=== PATIENT | male | born 1965 | race American Indian/Alaskan Native ===

== ENCOUNTER 2017-01-13 19:13 | Emergency (ER) | payer SELFPAY ==
[2017-01-13] MEDS ORDERED: TORADOL IV ONE (20:38)
[2017-01-13] MEDS ORDERED: NACL 0.9% 1000 ML 1,000 ML IV ONE (20:38)
--- NOTE | 2017-01-13 20:39 | Emergency Department Report ---
ED Abdominal Pain HPI - General Chief Complaint: Abdominal Pain Stated Complaint: BLOOD IN URINE Time Seen by Provider: 01/13/17 20:31 Source: patient, RN notes reviewed Mode of arrival: Ambulatory Limitations: No Limitations - History of Present Illness Initial Comments: This is a 51-year-old male. He is previously unknown to me. He does not have a primary care doctor. He denies chronic medical conditions. He works in security. He presents to the ER with gross hematuria and left flank pain. This started today. The flank pain is achy. It does not radiate anywhere. It has no exacerbating or relieving factors. There is no testicular pain. The patient indicates he does not have a urinary obstruction. The patient indicates he is sexually active only with his . He reports that he does have some burning when he urinates his urethra. There is no headache or neck pain, no chest pain and shortness of breath, there is no anterior abdominal pain. MD Complaint: flank pain -: Gradual Location: L flank Radiation: none Quality: aching Improves With: nothing Worsens With: nothing Associated Symptoms: denies: nausea, vomiting, diarrhea, fever, chills, constipation, hematemesis, hematochezia, melena, hematuria, anorexia, syncope - Related Data Previous Rx's Medication Instructions Recorded Last Taken Type Ketorolac [Toradol] 10 mg PO Q6H PRN #20 tablet 01/13/17 Unknown Rx Ondansetron [Zofran Odt] 4 mg PO QID PRN #20 tab.rapdis 01/13/17 Unknown Rx Allergies Allergy/AdvReac Type Severity Reaction Status Date / Time No Known Allergies Allergy Verified 01/13/17 19:39 ED Review of Systems ROS: Stated complaint: BLOOD IN URINE Other details as noted in HPI ED Past Medical Hx - Past Medical History Previous Medical History?: No - Surgical History Past Surgical History?: No - Social History Smoking Status: Never Smoker Substance Use Type: None - Medications Home Medications: Home Medications Medication Instructions Recorded Confirmed Last Taken Type Ketorolac [Toradol] 10 mg PO Q6H PRN #20 tablet 01/13/17 Unknown Rx Ondansetron [Zofran Odt] 4 mg PO QID PRN #20 tab.rapdis 01/13/17 Unknown Rx ED Physical Exam - General Limitations: No Limitations General appearance: alert, in no apparent distress - Head Head exam: Present: atraumatic, normocephalic - Eye Eye exam: Present: normal appearance, EOMI. Absent: nystagmus - ENT ENT exam: Present: normal exam, normal orophraynx, mucous membranes moist, normal external ear exam - Neck Neck exam: Present: normal inspection, full ROM. Absent: tenderness, meningismus - Respiratory Respiratory exam: Present: normal lung sounds bilaterally. Absent: respiratory distress, wheezes, rales, rhonchi, stridor, chest wall tenderness, accessory muscle use, decreased breath sounds, prolonged expiratory - Cardiovascular Cardiovascular Exam: Present: regular rate, normal rhythm, normal heart sounds. Absent: bradycardia, tachycardia, irregular rhythm, systolic murmur, diastolic murmur, rubs, gallop - GI/Abdominal GI/Abdominal exam: Present: soft, normal bowel sounds. Absent: distended, tenderness, guarding, rebound, rigid, pulsatile mass - Rectal Rectal exam: Present: deferred - exam: Present: normal inspection, other (there is normal testicular lie. There is no testicular tenderness. There is normal cremasteric reflex bilaterally. Escorted by nurse Phi Geller). Absent: testicular tenderness, scrotal swelling External exam: Present: normal external exam - Extremities Exam Extremities exam: Present: normal inspection, full ROM, normal capillary refill. Absent: pedal edema, joint swelling, calf tenderness - Back Exam Back exam: Present: normal inspection, full ROM. Absent: tenderness, CVA tenderness (R), CVA tenderness (L), muscle spasm, paraspinal tenderness, vertebral tenderness - Neurological Exam Neurological exam: Present: alert, oriented X3, normal gait, other (Extraocular movements intact. Tongue midline. No facial droop. Facial sensation intact to light touch in the V1, V2, V3 distribution bilaterally. 5 and 5 strength in 4 extremities.. Sensation is intact to light touch in 4 extremities.). Absent : motor sensory deficit - Psychiatric Psychiatric exam: Present: normal affect, normal mood - Skin Skin exam: Present: warm, dry, intact, normal color. Absent: rash ED Course Vital Signs 01/13/17 01/13/17 19:51 22:57 Temperature 98.5 F Pulse Rate 78 61 Respiratory 16 16 Rate Blood Pressure 160/96 Blood Pressure 155/81 [Left] O2 Sat by Pulse 100 99 Oximetry - Reevaluation(s) Reevaluation #1: 01/13/17 21:46 Differential diagnosis: Renal colic, urinary tract infection, urinary malignancy Assessment and plan: 51-year-old male with flank pain and gross hematuria. He is afebrile with reassuring vital signs, appears quite comfortable. Has an unremarkable physical examination. He will be treated symptomatically. Laboratory studies, urinalysis, noncontrast CT scan of the abdomen and pelvis pending. Patient does not have any risk factors for urinary malignancy; he does not work with blue or analine dyes, and he has not recently been to the [place] or [place]. There is no family history of urinary malignancy that he is aware of. Reevaluation #2: 01/13/17 23:25 Patient feels improved. Urinalysis appreciated. CT scan demonstrates no stone. Nonspecific cystic lesion is noted. Patient will need to follow up with outpatient neurology to exclude malignancy. Urinalysis does not meet criteria for antibiotic therapy. Dysuria most likely secondary to discomfort from blood coming from the urethral meatus. The patient is instructed as to the importance of close outpatient follow-up with urology. He is specifically instructed and not following up in a timely fashion may result in undiagnosed tumor/cancer/. ED Medical Decision Making - Lab Data Result diagrams: 01/13/17 20:41 01/13/17 20:41 Vital Signs 01/13/17 19:51 Temperature 98.5 F Pulse Rate 78 Respiratory 16 Rate Blood Pressure 160/96 O2 Sat by Pulse 100 Oximetry Labs 01/13/17 01/13/17 20:41 20:41 WBC 12.0 H Hgb 12.5 Sodium 135 L Potassium 4.1 Chloride 98.1 Carbon Dioxide 26 Anion Gap 15 BUN 14 Creatinine 0.9 Estimated GFR > 60 BUN/Creatinine Ratio 15.55 Glucose 157 H Calcium 8.9 Total Creatine Kinase 182 H - Radiology Data Radiology results: report reviewed Noncontrast CT of the abdomen and pelvis demonstrates no acute stone. There is a 1.9 cm cystic lesion on the left kidney which cannot be further evaluated on noncontrast study. Otherwise no acute intra-abdominal disease. Critical care attestation.: If time is entered above; I have spent that time in minutes in the direct care of this critically ill patient, excluding procedure time. ED Disposition Clinical Impression: Hematuria Disposition: DISCHARGED TO HOME OR SELFCARE Is pt being admited?: No Does the pt Need Aspirin: No Condition: Stable Instructions: Acute Hematuria (ED) Additional Instructions: As we discussed, laboratory studies today and CAT scan demonstrated blood in the urine. Noncontrast CT scan of the abdomen and pelvis demonstrated a nonspecific cystic lesion in the left kidney. Follow up with urology specialist as soon as possible. Not following up in a timely fashion may result in an undiagnosed tumor/cancer/malignancy. Cultures was sent today, results will be available the next 3-5 days. Please have a primary care doctor or urology specialist contact the medical records department to obtain culture results. Return to the ER right away with new pain, worsening pain, migration of pain, fevers or chills, intractable nausea or vomiting, inability to tolerate liquid feeds. Dr. Vaughan is a local urology specialist. Referrals: PRIMARY CAREMD [Primary Care Provider] - 3-5 Days NITISH VAUGHAN MD [Staff Physician] - 3-5 Days
[2017-01-13 21:00] LABS: Hemoglobin 12.5 gm/dl (11.8-15.2)
[2017-01-13 21:14] LABS: Anion Gap 15 mmol/L; BUN/Creatinine Ratio 15.55; Blood Urea Nitrogen 14 mg/dL (9-20); Calcium 8.9 mg/dL (8.4-10.2); Carbon Dioxide 26 mmol/L (22-30); Chloride 98.1 mmol/L (98-107); Creatine Kinase 182 units/L (55-170); Glucose 157 mg/dL (75-100); Potassium 4.1 mmol/L (3.6-5.0); Sodium 135 mmol/L (137-145)
[2017-01-13 21:48] LABS: Bilirubin,Urine Negative (Negative); Ketones,Urine Negative (Negative)
[2017-01-13 21:49] LABS: Blood,Urine Large (Negative); Leukocyte Esterase,Urine Moderate (Negative); Nitrite,Urine Negative (Negative); RBC,Urine > 182.0 /HPF (0.0-6.0); Urobilinogen,Urine < 2.0 mg/dL (<2.0)
--- NOTE | 2017-01-13 21:57 | Cat Scan Report ---
FINAL REPORT PROCEDURE: CT ABDOMEN PELVIS WO CON TECHNIQUE: Computerized axial tomography of the abdomen and pelvis was performed without intravenous contrast. This study is performed without intravascular contrast material and its sensitivity for abdominal and pelvic pathology, including neoplasms, inflammation, abscess, free fluid, thrombosis, arterial dissection and infarction, is reduced compared with a contrast enhanced study. HISTORY: left flank pain hematuria COMPARISON: No prior studies are available for comparison. FINDINGS: Liver, spleen, and adrenal glands are within normal limits. Right kidney demonstrates uniform density without calculi or hydronephrosis. Left kidney demonstrates a well-defined cyst measuring 1.9 centimeters in the midpole. There is no hydronephrosis. Aorta is of normal caliber. There is no free fluid or free air. Gallbladder is partially distended. Small bowel loops are within normal limits. Mild degree residual stool is noted. Appendix is normal. IMPRESSION: 1.9 centimeters cystic lesion of left kidney cannot be further evaluated on this noncontrast study. Otherwise no acute intra-abdominal or pelvic pathology.
[2017-01-13 22:07] LABS: Hematocrit 38.4 % (35.5-45.6); Mean Corpuscular HGB Conc 33 % (32-34); Mean Corpuscular Hemoglobin 28 pg (28-32); Mean Corpuscular Volume 84 fl (84-94); Platelet Count 388 K/mm3 (140-440); Red Blood Count 4.58 M/mm3 (3.65-5.03); Red Cell Distribution Width 15.8 % (13.2-15.2)
[2017-01-13 22:57] VITALS: BP 155/81
== END 2017-01-13 23:50 | disposition home or self-care (01) ==
LOC: ED 19:13
DX: R31.9 Hematuria, unspecified (principal)
CPT/HCPCS: 36415; 74176; 80048; 81001; 82550; 85027; 87086; 96361; 96374; 99284; J1885; J7030; 87076; 87186

== ENCOUNTER 2017-01-20 20:43 | Emergency (ER) | payer SELFPAY ==
[2017-01-20 21:04] LABS: Basophils % (Auto) 0.9 % (0.0-1.8); Eosinophils % (Auto) 3.2 % (0.0-4.3); Hematocrit 38.4 % (35.5-45.6); Hemoglobin 12.8 gm/dl (11.8-15.2); Mean Corpuscular HGB Conc 33 % (32-34); Mean Corpuscular Hemoglobin 28 pg (28-32); Mean Corpuscular Volume 83 fl (84-94); Platelet Count 404 K/mm3 (140-440); Red Blood Count 4.61 M/mm3 (3.65-5.03); Red Cell Distribution Width 15.7 % (13.2-15.2); White Blood Count 7.6 K/mm3 (4.5-11.0)
[2017-01-20 21:22] LABS: Alanine Aminotransferase 12 units/L (7-56); Albumin 3.7 g/dL (3.9-5); Albumin/Globulin Ratio 0.8 %; Alkaline Phosphatase 84 units/L (35-129); Anion Gap 16 mmol/L; Blood Urea Nitrogen 14 mg/dL (9-20); Calcium 8.6 mg/dL (8.4-10.2); Carbon Dioxide 25 mmol/L (22-30); Chloride 101.5 mmol/L (98-107); Glucose 94 mg/dL (75-100); Potassium 3.9 mmol/L (3.6-5.0); Sodium 139 mmol/L (137-145); Total Protein 8.5 g/dL (6.3-8.2)
--- NOTE | 2017-01-21 07:34 | Emergency Department Report ---
ED Male HPI - General Chief complaint: Abdominal Pain Stated complaint: LEFT SIDE PAIN, HEMATURIA Time Seen by Provider: 01/21/17 07:00 Source: patient Mode of arrival: Ambulatory Limitations: No Limitations - History of Present Illness Initial comments: Patient is a 51-year-old male with no past medical history or primary care, presenting with left flank pain and hematuria 3-4 days. Patient reports he was seen in the ER 3 days ago had a CT scan done and was discharged. Patient reports he still having mild dysuria, left flank pain, and hematuria with clots. Pt is sexually active with only. No prior episodes of this pain or hematuria. Patient denies any fevers, chills, nausea, vomiting, chest pain, shortness of breath, trauma, h/o STD's, back pain, testicular pain or swelling, travel or sick contacts. - Related Data Previous Rx's Medication Instructions Recorded Last Taken Type Ketorolac [Toradol] 10 mg PO Q6H PRN #20 tablet 01/13/17 Unknown Rx Ondansetron [Zofran Odt] 4 mg PO QID PRN #20 tab.rapdis 01/13/17 Unknown Rx Ciprofloxacin HCl [Ciprofloxacin 500 mg PO BID #20 tablet 01/21/17 Unknown Rx TAB] Allergies Allergy/AdvReac Type Severity Reaction Status Date / Time No Known Allergies Allergy Verified 01/13/17 19:39 ED Review of Systems ROS: Stated complaint: LEFT SIDE PAIN, HEMATURIA Other details as noted in HPI Comment: All other systems reviewed and negative ED Past Medical Hx - Past Medical History Previous Medical History?: No - Surgical History Past Surgical History?: No - Social History Smoking Status: Never Smoker Substance Use Type: None - Medications Home Medications: Home Medications Medication Instructions Recorded Confirmed Last Taken Type Ketorolac [Toradol] 10 mg PO Q6H PRN #20 tablet 01/13/17 Unknown Rx Ondansetron [Zofran Odt] 4 mg PO QID PRN #20 tab.rapdis 01/13/17 Unknown Rx Ciprofloxacin HCl [Ciprofloxacin 500 mg PO BID #20 tablet 01/21/17 Unknown Rx TAB] ED Physical Exam - General Limitations: No Limitations General appearance: alert, in no apparent distress - Head Head exam: Present: atraumatic, normocephalic - Eye Eye exam: Present: normal appearance - ENT ENT exam: Present: mucous membranes moist - Neck Neck exam: Present: normal inspection - Respiratory Respiratory exam: Present: normal lung sounds bilaterally. Absent: respiratory distress - Cardiovascular Cardiovascular Exam: Present: regular rate, normal rhythm. Absent: systolic murmur, diastolic murmur, rubs, gallop - GI/Abdominal GI/Abdominal exam: Present: soft, tenderness (mild L flank tenderness), normal bowel sounds. Absent: distended, guarding, rebound - Rectal Rectal exam: Present: deferred - Extremities Exam Extremities exam: Present: normal inspection - Back Exam Back exam: Present: normal inspection. Absent: CVA tenderness (R), CVA tenderness (L) - Neurological Exam Neurological exam: Present: alert, oriented X3 - Psychiatric Psychiatric exam: Present: normal affect, normal mood - Skin Skin exam: Present: warm, dry, intact, normal color. Absent: rash ED Course Vital Signs 01/20/17 01/21/17 01/21/17 20:50 02:16 06:50 Temperature 98.3 F 98.4 F Pulse Rate 71 66 72 Respiratory 18 18 16 Rate Blood Pressure 142/89 143/99 Blood Pressure 122/87 [Right] O2 Sat by Pulse 100 98 Oximetry 01/21/17 07:15 Temperature Pulse Rate 63 Respiratory 16 Rate Blood Pressure Blood Pressure 139/89 [Right] O2 Sat by Pulse 100 Oximetry ED Medical Decision Making - Lab Data Result diagrams: 01/20/17 20:56 01/21/17 07:39 - Medical Decision Making CT scan reviewed from 3 days prior, patient only has some small cyst of left kidney. ED notes from prior visit reviewed. Your physician to discuss primary care follow-up to rule out malignancy and any other causes of hematuria with primary care. Critical care attestation.: If time is entered above; I have spent that time in minutes in the direct care of this critically ill patient, excluding procedure time. ED Disposition Clinical Impression: Flank pain, UTI (urinary tract infection) Disposition: DISCHARGED TO HOME OR SELFCARE Is pt being admited?: No Condition: Stable Instructions: Urinary Tract Infection in Men (ED), Flank Pain (ED) Prescriptions: Ciprofloxacin HCl [Ciprofloxacin TAB] 500 mg PO BID #20 tablet Referrals: PRIMARY CARE, [Primary Care Provider] - 3-5 Days
[2017-01-21 07:42] LABS: Bilirubin,Urine NEG (Negative); Blood,Urine LG (Negative); Ketones,Urine TR mg/dL (Negative); Leukocyte Esterase,Urine MOD (Negative); Mucus,Urine 2+ /HPF; Nitrite,Urine POS (Negative); Urobilinogen,Urine < 2.0 mg/dL (<2.0)
[2017-01-21 07:44] LABS: RBC,Urine > 182.0 /HPF (0.0-6.0); WBC,Urine > 182.0 /HPF (0.0-6.0)
[2017-01-21 08:09] LABS: Anion Gap 17 mmol/L; BUN/Creatinine Ratio 15.55; Blood Urea Nitrogen 14 mg/dL (9-20); Calcium 8.9 mg/dL (8.4-10.2); Carbon Dioxide 24 mmol/L (22-30); Chloride 102.8 mmol/L (98-107); Glucose 141 mg/dL (75-100); Potassium 3.9 mmol/L (3.6-5.0); Sodium 140 mmol/L (137-145)
[2017-01-21 09:26] VITALS: BP 146/92
== END 2017-01-21 09:26 | disposition home or self-care (01) ==
LOC: ED 20:43
DX: N39.0 Urinary tract infection, site not specified (principal)
CPT/HCPCS: 36415; 80048; 80053; 81001; 85025; 99283

== ENCOUNTER 2021-12-13 08:36 | Emergency (ER) | payer SELFPAY ==
[2021-12-13] MEDS ORDERED: SODIUM CHLORIDE 0.9% 1000 ML 1,000 ML IV ONE (09:27)
[2021-12-13] MEDS ORDERED: metFORMIN 500 MG TAB PO ONE (09:27)
--- NOTE | 2021-12-13 09:29 | Emergency Department Report ---
HPI - General Chief Complaint: Hyperglycemia Time Seen by Provider: 12/13/21 09:18 - HPI HPI: For the last week the patient has been experiencing moderate polydipsia and polyuria. He denies weight loss nausea vomiting fever chills chest pain focal weakness headache or any other associated symptoms. He has never been told that he has diabetes. He has not checked his sugar. He has not taken any medications for this and nothing makes it better nor worse. ED Past Medical Hx - Past Medical History Previous Medical History?: No - Surgical History Past Surgical History?: No - Family History Family history: no significant - Social History Smoking Status: Never Smoker Substance Use Type: None - Medications Home Medications: Home Medications Medication Instructions Recorded Confirmed Last Taken Type Ketorolac [Toradol] 10 mg PO Q6H PRN #20 tablet 01/13/17 Unknown Rx Ondansetron [Zofran Odt] 4 mg PO QID PRN #20 tab.rapdis 01/13/17 Unknown Rx Ciprofloxacin HCl [Ciprofloxacin 500 mg PO BID #20 tablet 01/21/17 Unknown Rx TAB] metFORMIN [Glucophage] 500 mg PO BID #90 12/13/21 Unknown Rx ED Review of Systems ROS: Stated complaint: THRISTY/NOT FEELING WELL Other details as noted in HPI Comment: All other systems reviewed and negative Physical Exam - Physical Exam Vital Signs: Vital Signs 12/13/21 08:47 Temperature 98.5 F Pulse Rate 85 Respiratory 18 Rate Blood Pressure 135/86 O2 Sat by Pulse 100 Oximetry Physical Exam: Physical Exam Constitutional: General: No acute distress. Appearance: No diaphoresis. HENT: Head: Normocephalic. Eyes: Pupils: Pupils are equal, round, and reactive to light. Neck: Musculoskeletal: Normal range of motion. Cardiovascular: Rate and Rhythm: Normal rate and regular rhythm. Pulses: Intact distal pulses. Heart sounds: Normal heart sounds. No murmur. Pulmonary: Effort: No respiratory distress. Breath sounds: No wheezing or rales. Chest: Chest wall: No tenderness. Abdominal: General: There is no distension. Palpations: There is no mass. Tenderness: There is no abdominal tenderness. There is no guarding or rebound. Musculoskeletal: Normal range of motion. Skin: General: Skin is warm and dry. Neurological: Mental Status: Alert and oriented to person, place, and time. Psychiatric: Mood and Affect: Mood and affect normal. Cognition and Memory: Memory normal. Judgment: Judgment normal. ED Course Vital Signs 12/13/21 08:47 Temperature 98.5 F Pulse Rate 85 Respiratory 18 Rate Blood Pressure 135/86 O2 Sat by Pulse 100 Oximetry - Reevaluation(s) Reevaluation #1: 12/13/21 11:07 The patient's blood sugar was in the 300s. I gave him a touch of insulin with 8 units intravenous. I will put him on 500 twice daily of Metformin. He knows to increase his dose in a week to 1000 in the morning and 500 at night. In the meantime he will follow up with a doctor we have assigned him. I gave him prescriptions for all the equipment he needs to monitor his blood glucose. He will return if any other issues arise. ED Medical Decision Making - Lab Data Result diagrams: 12/13/21 09:44 12/13/21 09:44 Critical care attestation.: If time is entered above; I have spent that time in minutes in the direct care of this critically ill patient, excluding procedure time. ED Disposition Clinical Impression: Diabetes, Hyperglycemia Disposition: 01 HOME / SELF CARE / HOMELESS Is pt being admited?: No Does the pt Need Aspirin: No Condition: Stable Instructions: Type 2 Diabetes Mellitus, Diagnosis, Adult, Diabetes Mellitus Type 2 in Adults (ED) Prescriptions: metFORMIN [Glucophage] 500 mg PO BID #90 Time of Disposition: 11:20 Print Language: [place]
[2021-12-13 10:13] LABS: Basophils # (Auto) 0.1 K/mm3 (0.0-0.1); Basophils % (Auto) 0.9 % (0.0-1.8); Eosinophils # (Auto) 0.2 K/mm3 (0.0-0.4); Eosinophils % (Auto) 3.5 % (0.0-4.3); Hemoglobin 13.5 gm/dl (11.8-15.2); Lymphocytes # (Auto) 1.4 K/mm3 (1.2-5.4); Lymphocytes % (Auto) 22.1 % (13.4-35.0); Mean Corpuscular HGB Conc 34 % (32-34); Mean Corpuscular Volume 82 fl (84-94); Monocytes # (Auto) 0.4 K/mm3 (0.0-0.8); Monocytes % (Auto) 5.8 % (0.0-7.3); Platelet Count 393 K/mm3 (140-440); Red Blood Count 4.86 M/mm3 (3.65-5.03); Red Cell Distribution Width 15.5 % (13.2-15.2)
[2021-12-13 10:31] LABS: Alanine Aminotransferase 22 units/L (7-56); Albumin 3.6 g/dL (3.9-5); BUN/Creatinine Ratio 10; Blood Urea Nitrogen 10 mg/dL (9-20); Calcium 9.3 mg/dL (8.4-10.2); Hemolysis Index 3
[2021-12-13] MEDS ORDERED: INSULIN REGULAR, HUMAN 100 UNITS/1 ML IV ONE (11:03)
[2021-12-13 11:46] VITALS: BP 138/90
== END 2021-12-13 11:53 | disposition home or self-care (01) ==
LOC: ED 08:36
DX: E11.65 Type 2 diabetes mellitus with hyperglycemia (principal)
CPT/HCPCS: 36415; 80053; 82962; 85025; 96361; 96374; 99284; J7030; Q0162; Q9967; J1815

== ENCOUNTER 2021-12-21 01:58 | Inpatient (IN) | payer SELFPAY ==
[2021-12-21 05:43] LABS: Albumin 4.2 g/dL (3.9-5); Calcium 9.8 mg/dL (8.4-10.2)
[2021-12-21 05:49] LABS: Hematocrit 42.6 % (35.5-45.6); Mean Corpuscular HGB Conc 33 % (32-34); Mean Corpuscular Volume 84 fl (84-94); Platelet Count 446 K/mm3 (140-440); Red Blood Count 5.05 M/mm3 (3.65-5.03); Red Cell Distribution Width 15.7 % (13.2-15.2)
[2021-12-21 06:34] LABS: Bilirubin,Urine NEG (Negative); Blood,Urine NEG (Negative); Color,Urine Yellow (Yellow); Mucus,Urine FEW /HPF; Protein,Urine <15 mg/dL mg/dL (Negative); Urobilinogen,Urine < 2.0 mg/dL (<2.0)
[2021-12-21] MEDS ORDERED: SODIUM CHLORIDE 0.9% 1000 ML 1,000 ML IV ONE ×4 (07:09→10:00)
--- NOTE | 2021-12-21 07:32 | Emergency Department Report ---
HPI - General Chief Complaint: Hyperglycemia Time Seen by Provider: 12/21/21 07:08 - HPI HPI: Room 25 Patient is a 56-year-old male present with a chief complaint of weakness. The patient states for the past week he has had dry lips, polyuria, polydipsia diffuse weakness and periumbilical abdominal pain. Patient denies nausea vomiting or fever. Patient states he has been compliant with his metformin and takes no other medications for his diabetes ED Past Medical Hx - Past Medical History Hx Diabetes: Yes - Surgical History Past Surgical History?: No - Family History Family history: no significant - Social History Smoking Status: Never Smoker Substance Use Type: None (Denies illicit drug use) - Medications Home Medications: Home Medications Medication Instructions Recorded Confirmed Last Taken Type Ketorolac [Toradol] 10 mg PO Q6H PRN #20 tablet 01/13/17 Unknown Rx Ondansetron [Zofran Odt] 4 mg PO QID PRN #20 tab.rapdis 01/13/17 Unknown Rx Ciprofloxacin HCl [Ciprofloxacin 500 mg PO BID #20 tablet 01/21/17 Unknown Rx TAB] metFORMIN [Glucophage] 500 mg PO BID #90 12/13/21 Unknown Rx ED Review of Systems ROS: Stated complaint: GENERAL WEAKNESS Other details as noted in HPI Constitutional: denies: fever Eyes: denies: eye pain ENT: denies: throat pain Respiratory: no symptoms reported Cardiovascular: denies: chest pain Endocrine: increased thirst, increased urine Gastrointestinal: abdominal pain. denies: nausea, vomiting Genitourinary: denies: dysuria Musculoskeletal: denies: back pain Neurological: denies: headache Physical Exam - Physical Exam Vital Signs: Vital Signs 12/21/21 02:16 Temperature 98.7 F Pulse Rate 99 H Respiratory 18 Rate Blood Pressure 134/79 O2 Sat by Pulse 99 Oximetry Physical Exam: GENERAL: The patient is well-developed well-nourished male lying on stretcher not appearing to be in acute distress. [] HEENT: Normocephalic. Atraumatic. Extraocular motions are intact. Patient has dry mucous membranes. NECK: Supple. Trachea midline CHEST/LUNGS: Clear to auscultation. There is no respiratory distress noted. HEART/CARDIOVASCULAR: Regular. There is no tachycardia. There is no gallop rub or murmur. ABDOMEN: Abdomen is soft, nontender. Patient has normal bowel sounds. There is no abdominal distention. SKIN: There is no rash. There is no edema. There is no diaphoresis. NEURO: The patient is awake, alert, and oriented. The patient is cooperative. The patient has no focal neurologic deficits. The patient has normal speech. GCS 15 MUSCULOSKELETAL: There is no evidence of acute injury. ED Course Vital Signs 12/21/21 02:16 Temperature 98.7 F Pulse Rate 99 H Respiratory 18 Rate Blood Pressure 134/79 O2 Sat by Pulse 99 Oximetry ED Medical Decision Making - Lab Data Result diagrams: 12/21/21 04:30 12/21/21 04:30 Laboratory Tests 12/21/21 12/21/21 12/21/21 04:30 04:30 04:30 WBC 9.9 RBC 5.05 H Hgb 14.0 Hct 42.6 MCV 84 MCH 28 MCHC 33 RDW 15.7 H Plt Count 446 H VBG pH 7.318 L Sodium 134 L Potassium 5.3 H Chloride 92.8 L Carbon Dioxide 18 L Anion Gap 29 BUN 25 H Creatinine 1.6 H Estimated GFR 55 BUN/Creatinine Ratio 16 Glucose 621 H* Calcium 9.8 Total Bilirubin 0.50 AST 16 ALT 24 Alkaline Phosphatase 111 Total Protein 9.4 H Albumin 4.2 Albumin/Globulin Ratio 0.8 Urine Color Urine Turbidity Urine pH Ur Specific [place] Urine Protein Urine Glucose (UA) Urine Ketones Urine Blood Urine Nitrite Urine Bilirubin Urine Urobilinogen Ur Leukocyte Esterase Urine WBC (Auto) Urine RBC (Auto) U Epithel Cells (Auto) Urine Mucus 12/21/21 06:04 WBC RBC Hgb Hct MCV MCH MCHC RDW Plt Count VBG pH Sodium Potassium Chloride Carbon Dioxide Anion Gap BUN Creatinine Estimated GFR BUN/Creatinine Ratio Glucose Calcium Total Bilirubin AST ALT Alkaline Phosphatase Total Protein Albumin Albumin/Globulin Ratio Urine Color Yellow Urine Turbidity Clear Urine pH 5.0 Ur Specific [place] 1.025 Urine Protein <15 mg/dl Urine Glucose (UA) >=500 Urine Ketones 20 Urine Blood Neg Urine Nitrite Neg Urine Bilirubin Neg Urine Urobilinogen < 2.0 Ur Leukocyte Esterase Mod Urine WBC (Auto) 39.0 H Urine RBC (Auto) 9.0 U Epithel Cells (Auto) 2.0 Urine Mucus Few - Differential Diagnosis DKA, hyperglycemia, dehydration Critical care attestation.: If time is entered above; I have spent that time in minutes in the direct care of this critically ill patient, excluding procedure time. ED Disposition Clinical Impression: DKA (diabetic ketoacidosis) Disposition: 09 ADMITTED INPATIENT Is pt being admited?: Yes Does the pt Need Aspirin: No Condition: Fair Instructions: Diabetic Ketoacidosis (ED) Referrals: PRIMARY CARE,MD [Primary Care Provider] - 3-5 Days Time of Disposition: 07:33 (Care transferred to hospitalist (Dr Green))
[2021-12-21] MEDS ORDERED: ACETAMINOPHEN 325 MG TAB PO PRN (08:00)
[2021-12-21] MEDS ORDERED: MORPHINE 4 MG/1 ML INJ IV PRN (08:00)
[2021-12-21] MEDS ORDERED: DEXTROSE 50% IN WATER (25GM) 50 ML SYRINGE IV PRN (08:00)
[2021-12-21] MEDS ORDERED: MORPHINE 2 MG/1 ML INJ IV PRN (08:00)
[2021-12-21] MEDS: INSULIN REGULAR, HUMAN 100 UNITS in SODIUM CHLORIDE 0.9% 99 ML IV SCH ×5 (08:32→23:29)
[2021-12-21 08:37] LABS: Calcium 9.7 mg/dL (8.4-10.2)
--- NOTE | 2021-12-21 08:49 | History and Physical Report ---
History of Present Illness Date of examination: 12/21/21 Chief complaint: Weakness, dry lips, increased urination, increased thirst, periumbilical abdominal pain History of present illness: This is a 56-year-old male with DM (per patient diagnosed last week and was prescribed metformin 500 twice daily with stated compliance) who presents the emergency department on 12/21 with complaints of weakness, dry lips, polyuria, polydipsia, SOB while walking and periumbilical abdominal pain for the past week. Patient denies any chest pain, weight loss, weight gain, cough, hematuria, hematochezia, hematemesis, night sweats but does endorse weakness and shortness of breath on exertion. Patient states that he has been vaccinated x2 and received a booster Stion vaccine against COVID-19. He denies any sick contacts or recent known exposures to COVID-19. Work-up in the emergency department lab work was consistent with DKA. Patient will be admitted to the hospitalist service with consult to [facility] with diagnosis of DKA and initiated the DKA protocol. Past medical history: DM (metformin 500 mg twice daily) Past surgical history: Denies any surgical interventions Past social history: Denies smoking, EtOH abuse, illicit drug abuse Past family history: Patient states that his daughter has diabetes mellitus Past History Past Medical History: diabetes. denies: atrial fib, arrhythmia, anemia, COPD, ESRD, GERD, hypertension, renal failure, seizures, stroke Past Surgical History: No surgical history Social history: no significant social history, , lives with family, full code Family history: diabetes Medications and Allergies Allergies Allergy/AdvReac Type Severity Reaction Status Date / Time No Known Allergies Allergy Verified 01/13/17 19:39 Home Medications Medication Instructions Recorded Confirmed Last Taken Type Ketorolac [Toradol] 10 mg PO Q6H PRN #20 tablet 01/13/17 Unknown Rx Ondansetron [Zofran Odt] 4 mg PO QID PRN #20 tab.rapdis 01/13/17 Unknown Rx Ciprofloxacin HCl [Ciprofloxacin 500 mg PO BID #20 tablet 01/21/17 Unknown Rx TAB] metFORMIN [Glucophage] 500 mg PO BID #90 12/13/21 Unknown Rx Active Meds: Active Medications Acetaminophen (Acetaminophen 325 Mg Tab) 650 mg PO Q6H PRN PRN Reason: Pain MILD(1-3)/Fever >100.5/CARMONA Dextrose (Dextrose 50% In Water (25gm) 50 Ml Syringe) 0 ml IV Q30MIN PRN; Protocol PRN Reason: Hypoglycemia Heparin Sodium (Porcine) (Heparin 5,000 Unit/1 Ml Vial) 5,000 unit SUB-Q Q8HR DM Insulin Human Regular 100 (units/ Sodium Chloride) 100 mls @ 10 mls/hr IV TITR DM; Protocol Last Admin: 12/21/21 08:32 Dose: 8 units/hr, 8 mls/hr Sodium Chloride (Nacl 0.9% 1000 Ml) 1,000 mls @ 999 mls/hr IV BOLUS ONE Stop: 12/21/21 09:00 Potassium Chloride/Dextrose/Sod Cl (D5w/0.45% Nacl/Kcl 20 Meq) 20 meq in 1,000 mls @ 125 mls/hr IV DIRECT DM Morphine Sulfate (Morphine 2 Mg/1 Ml Inj) 2 mg IV Q4H PRN PRN Reason: Pain, Moderate (4-6) Morphine Sulfate (Morphine 4 Mg/1 Ml Inj) 4 mg IV Q4H PRN PRN Reason: Pain , Severe (7-10) Sodium Chloride (Sodium Chloride 0.9% 10 Ml Flush Syringe) 10 ml IV BID DM Sodium Chloride (Sodium Chloride 0.9% 10 Ml Flush Syringe) 10 ml IV PRN PRN PRN Reason: LINE FLUSH Review of Systems Constitutional: weakness, no weight loss, no weight gain, no fever, no chills, no sweats, no night sweats, no anorexia, no fatigue Ears, nose, mouth and throat: headache, no ear pain, no ear discharge, no tinnitis, no decreased hearing, no nose pain, no nasal congestion, no nasal discharge, no sinus pressure, no sinus pain, no epistaxis, no dysphagia, no sore throat, no post-nasal drip Cardiovascular: shortness of breath, no chest pain, no orthopnea, no palpitations Respiratory: shortness of breath, no cough, no cough with sputum, no excessive sputum, no hemoptysis, no dyspnea on exertion, no congestion, no wheezing, no pl eurisy, no pain on inspiration, no sleep apnea Gastrointestinal: abdominal pain, no nausea, no vomiting, no diarrhea, no constipation, no hematemesis, no coffee ground emesis, no melena, no hematochezia Genitourinary Male: polyuria, no dysuria, no hematuria, no flank pain, no discharge, no urinary hesitancy, no nocturia, no incontinence, no erectile dysfunction, no genital pain, no genital sores Rectal: no pain, no incontinence, no bleeding, no hemorrhoids Musculoskeletal: no neck stiffness, no neck pain, no shooting arm pain, no arm numbness/tingling, no low back pain, no shooting leg pain, no leg numbness/tingling, no frequent falls Integumentary: dryness, no rash, no pruritis, no redness, no sores, no wounds, no depigmentation, no foot/leg ulcers Neurological: weakness, headaches, no head injury, no transient paralysis, no paralysis, no parathesias, no numbness, no tingling, no seizures, no syncope, no migraines, no change in speech, no change in mentation, no changes in smell/taste, no sensory deficit, no double vision, no loss of vision Psychiatric: no anxiety, no memory loss, no change in sleep habits, no sleep disturbances, no change in appetite, no change in libido Endocrine: polydipsia, polyuria, no cold intolerance, no heat intolerance, no nocturia, no weight change, no palpatations, no high blood sugars Hematologic/Lymphatic: no easy bruising, no easy bleeding, no lymphedema Allergic/Immunologic: no allergic rhinitis, no seasonal allergies Exam - Constitutional Vitals: Temp Pulse Resp BP Pulse Ox 98.2 F 88 19 106/70 99 12/21/21 08:01 12/21/21 07:46 12/21/21 07:46 12/21/21 07:46 12/21/21 08:01 General appearance: Present: no acute distress, obese - EENT Eyes: Present: PERRL, EOM intact ENT: hearing intact, clear oral mucosa, dentition normal - Neck Neck: Present: normal ROM - Respiratory Respiratory effort: normal Respiratory: bilateral: CTA - Cardiovascular Rhythm: regular Heart Sounds: Present: S1 & S2. Absent: systolic murmur, diastolic murmur - Extremities Extremities: no ischemia, pulses intact, pulses symmetrical, No edema, normal temperature, normal color, Full ROM Peripheral Pulses: within normal limits - Abdominal General gastrointestinal: Present: soft, non-tender, non-distended, normal bowel sounds - Integumentary Integumentary: Present: clear, warm, dry - Musculoskeletal Musculoskeletal: strength equal bilaterally - Psychiatric Psychiatric: appropriate mood/affect, cooperative - Neurologic Neurologic: CNII-XII intact, no focal deficits, moves all extremities - Allied Health Allied health notes reviewed: nursing HEART Score - HEART Score History: Slightly suspicious EKG: Normal Age: 45-65 Risk factors: 1-2 risk factors Troponin: WBC 9.9 K/mm3 (4.5-11.0) 12/21/21 04:30 RBC 5.05 M/mm3 (3.65-5.03) H 12/21/21 04:30 Hgb 14.0 gm/dl (11.8-15.2) 12/21/21 04:30 Hct 42.6 % (35.5-45.6) 12/21/21 04:30 MCV 84 fl (84-94) 12/21/21 04:30 MCH 28 pg (28-32) 12/21/21 04:30 MCHC 33 % (32-34) 12/21/21 04:30 RDW 15.7 % (13.2-15.2) H 12/21/21 04:30 Plt Count 446 K/mm3 (140-440) H 12/21/21 04:30 VBG pH 7.318 (7.320-7.420) L 12/21/21 04:30 Sodium 135 mmol/L (137-145) L 12/21/21 Unknown Potassium 5.6 mmol/L (3.6-5.0) H 12/21/21 Unknown Chloride 92.6 mmol/L (98-107) L 12/21/21 Unknown Carbon Dioxide 20 mmol/L (22-30) L 12/21/21 Unknown Anion Gap 28 mmol/L 12/21/21 Unknown BUN 27 mg/dL (9-20) H 12/21/21 Unknown Creatinine 1.6 mg/dL (0.8-1.3) H 12/21/21 Unknown Estimated GFR 55 ml/min 12/21/21 Unknown BUN/Creatinine Ratio 17 % 12/21/21 Unknown Glucose 621 mg/dL (75-100) H* 12/21/21 04:30 POC Glucose 544 mg/dL (70-105) H 12/21/21 02:16 Hemoglobin A1c 13.0 % (4-6) H 12/21/21 04:30 Calcium 9.7 mg/dL (8.4-10.2) 12/21/21 Unknown Phosphorus 5.40 mg/dL (2.5-4.5) H 12/21/21 04:30 Magnesium 2.20 mg/dL (1.7-2.3) 12/21/21 04:30 Total Bilirubin 0.50 mg/dL (0.1-1.2) 12/21/21 04:30 AST 16 units/L (5-40) 12/21/21 04:30 ALT 24 units/L (7-56) 12/21/21 04:30 Alkaline Phosphatase 111 units/L (35-129) 12/21/21 04:30 Total Protein 9.4 g/dL (6.3-8.2) H 12/21/21 04:30 Albumin 4.2 g/dL (3.9-5) 12/21/21 04:30 Albumin/Globulin Ratio 0.8 % 12/21/21 04:30 Urine Color Yellow (Yellow) 12/21/21 06:04 Urine Turbidity Clear (Clear) 12/21/21 06:04 Urine pH 5.0 (5.0-7.0) 12/21/21 06:04 Ur Specific [place] 1.025 (1.003-1.030) 12/21/21 06:04 Urine Protein <15 mg/dl mg/dL (Negative) 12/21/21 06:04 Urine Glucose (UA) >=500 mg/dL (Negative) 12/21/21 06:04 Urine Ketones 20 mg/dL (Negative) 12/21/21 06:04 Urine Blood Neg (Negative) 12/21/21 06:04 Urine Nitrite Neg (Negative) 12/21/21 06:04 Urine Bilirubin Neg (Negative) 12/21/21 06:04 Urine Urobilinogen < 2.0 mg/dL (<2.0) 12/21/21 06:04 Ur Leukocyte Esterase Mod (Negative) 12/21/21 06:04 Urine WBC (Auto) 39.0 /HPF (0.0-6.0) H 12/21/21 06:04 Urine RBC (Auto) 9.0 /HPF (0.0-6.0) 12/21/21 06:04 U Epithel Cells (Auto) 2.0 /HPF (0-13.0) 12/21/21 06:04 Urine Mucus Few /HPF 12/21/21 06:04 Troponin: < normal limit HEART Score: 2 Results - Labs CBC & Chem 7: 12/21/21 04:30 12/21/21 Unknown Labs: Laboratory Last Values WBC 9.9 K/mm3 (4.5-11.0) 12/21/21 04:30 RBC 5.05 M/mm3 (3.65-5.03) H 12/21/21 04:30 Hgb 14.0 gm/dl (11.8-15.2) 12/21/21 04:30 Hct 42.6 % (35.5-45.6) 12/21/21 04:30 MCV 84 fl (84-94) 12/21/21 04:30 MCH 28 pg (28-32) 12/21/21 04:30 MCHC 33 % (32-34) 12/21/21 04:30 RDW 15.7 % (13.2-15.2) H 12/21/21 04:30 Plt Count 446 K/mm3 (140-440) H 12/21/21 04:30 VBG pH 7.318 (7.320-7.420) L 12/21/21 04:30 Sodium 135 mmol/L (137-145) L 12/21/21 Unknown Potassium 5.6 mmol/L (3.6-5.0) H 12/21/21 Unknown Chloride 92.6 mmol/L (98-107) L 12/21/21 Unknown Carbon Dioxide 20 mmol/L (22-30) L 12/21/21 Unknown Anion Gap 28 mmol/L 12/21/21 Unknown BUN 27 mg/dL (9-20) H 12/21/21 Unknown Creatinine 1.6 mg/dL (0.8-1.3) H 12/21/21 Unknown Estimated GFR 55 ml/min 12/21/21 Unknown BUN/Creatinine Ratio 17 % 12/21/21 Unknown Glucose 621 mg/dL (75-100) H* 12/21/21 04:30 POC Glucose 551 mg/dL (70-105) H 12/21/21 07:28 Hemoglobin A1c 13.0 % (4-6) H 12/21/21 04:30 Calcium 9.7 mg/dL (8.4-10.2) 12/21/21 Unknown Phosphorus 5.40 mg/dL (2.5-4.5) H 12/21/21 04:30 Magnesium 2.20 mg/dL (1.7-2.3) 12/21/21 04:30 Total Bilirubin 0.50 mg/dL (0.1-1.2) 12/21/21 04:30 AST 16 units/L (5-40) 12/21/21 04:30 ALT 24 units/L (7-56) 12/21/21 04:30 Alkaline Phosphatase 111 units/L (35-129) 12/21/21 04:30 Total Protein 9.4 g/dL (6.3-8.2) H 12/21/21 04:30 Albumin 4.2 g/dL (3.9-5) 12/21/21 04:30 Albumin/Globulin Ratio 0.8 % 12/21/21 04:30 Urine Color Yellow (Yellow) 12/21/21 06:04 Urine Turbidity Clear (Clear) 12/21/21 06:04 Urine pH 5.0 (5.0-7.0) 12/21/21 06:04 Ur Specific [place] 1.025 (1.003-1.030) 12/21/21 06:04 Urine Protein <15 mg/dl mg/dL (Negative) 12/21/21 06:04 Urine Glucose (UA) >=500 mg/dL (Negative) 12/21/21 06:04 Urine Ketones 20 mg/dL (Negative) 12/21/21 06:04 Urine Blood Neg (Negative) 12/21/21 06:04 Urine Nitrite Neg (Negative) 12/21/21 06:04 Urine Bilirubin Neg (Negative) 12/21/21 06:04 Urine Urobilinogen < 2.0 mg/dL (<2.0) 12/21/21 06:04 Ur Leukocyte Esterase Mod (Negative) 12/21/21 06:04 Urine WBC (Auto) 39.0 /HPF (0.0-6.0) H 12/21/21 06:04 Urine RBC (Auto) 9.0 /HPF (0.0-6.0) 12/21/21 06:04 U Epithel Cells (Auto) 2.0 /HPF (0-13.0) 12/21/21 06:04 Urine Mucus Few /HPF 12/21/21 06:04 - Imaging and Cardiology Chest x-ray: pending Assessment and Plan Assessment and plan: A/P: This is a this is a 56-year-old male with diabetes mellitus admitted with DKA Neuro: NAD -Avoid delirium -Reorientation as needed -Maintain sleep-wake cycle -As needed analgesia Cardiac: NAD -Blood pressure monitoring per protocol Respiratory: NAD, c/o SOB on exertion -Denies cough, inspiratory pain, CTA on auscultation -Obtain CXR -Currently on room air -Pulmonary hygiene -SPO2 monitoring GI: Protein calorie malnutrition, obesity -PPI -N.p.o. -BR when appropriate -Encourage dietary and lifestyle modifications : Pseudohyponatremia, hypochloremia, hyperkalemia, anion gap metabolic acidosis, acute kidney injury, hyperphosphatemia -Correct sodium 147 -JAMES possibly secondary to vasomotor nephropathy -Will attempt to correct with IVF -Strict intake and output -Renally dose medications -Avoid nephrotoxic medications -Daily weights -Obtain urine lites ID: [id number] -Monitor WBC and temperature curve Endo: DKA, h/o DM -Initiate DKA protocol -Hemoglobin A1c 13 -Insulin drip -Accu-Cheks per protocol -IVF per protocol -S/p 2 liters NS in the ED -Repeat 2 L IVF -Avoid hypoglycemia -CC diet when appropriate Heme: NAD -Trend CBC -Transfuse hemoglobin less than 7 -Monitor for signs of bleeding -Heparin subcu -SCDs to BLE while in bed MS: Weakness -Per patient patient had a fall episode last week, Per at bedside he sat down from standing position/slumped over -No weakness noted on exam -May be secondary to volume deficit from DKA -May need PT/OT consult Dispo: ICU Advance care planning: Full CODE STATUS The high probability of a clinically significant, sudden or life threatening deterioration of the [endo] system(s) required my full and direct attention, intervention and personal management. The aggregate critical care time was [90] minutes. This time is in addition to time spent performing reported procedures but includes the following: [x] Data Review and interpretation [x] Patient assessment and monitoring of vital signs [x] Documentation [x] Medication orders and management Advance Directives: No VTE prophylaxis?: Chemical, Mechanical Plan of care discussed with patient/family: Yes
--- NOTE | 2021-12-21 09:21 | XRay Report ---
CHEST 1 VIEW INDICATION: sob. COMPARISON: None FINDINGS: Support devices: None. Heart: Within normal limits. Lungs/Pleura: No acute air space or interstitial disease. The left hemidiaphragm is mildly elevated o r eventrated. No pleural abnormality or pneumothorax. Additional findings: None. IMPRESSION: No acute findings. Mild elevation or eventration of the left hemidiaphragm. Signer Name: Danny Rodrigues Jr, MD Signed: 12/21/2021 9:16 AM Workstation Name: [id number]
[2021-12-21] MEDS ORDERED: SODIUM POLYSTYRENE 15 GM/60 ML ORAL LIQD PO ONE (11:22)
[2021-12-21 13:01] LABS: BUN/Creatinine Ratio 20; Blood Urea Nitrogen 24 mg/dL (9-20); Calcium 8.8 mg/dL (8.4-10.2); Hemolysis Index 41
[2021-12-21] MEDS: D5W/0.45% NACL/KCL 20 MEQ 20 MEQ/1,000 ML BAG IV SCH (15:25)
[2021-12-21] MEDS: HEPARIN 5,000 UNIT/1 ML VIAL SUB-Q SCH (15:33)
[2021-12-21] MEDS ORDERED: SODIUM CHLORIDE 0.9% 100 ML IVPB IV SCH (17:00)
[2021-12-21 18:42] LABS: Creatinine,Urine 258.3 mg/dL (0.1-20.0)
[2021-12-21 23:43] LABS: BUN/Creatinine Ratio 20; Blood Urea Nitrogen 20 mg/dL (9-20); Calcium 8.5 mg/dL (8.4-10.2); Hemolysis Index 31
[2021-12-22] MEDS: HEPARIN 5,000 UNIT/1 ML VIAL SUB-Q SCH ×2 (01:33→06:12)
[2021-12-22 04:57] LABS: Basophils % (Auto) 0.5 % (0.0-1.8); Eosinophils # (Auto) 0.2 K/mm3 (0.0-0.4); Eosinophils % (Auto) 1.8 % (0.0-4.3); Hematocrit 44.2 % (35.5-45.6); Hemoglobin 14.2 gm/dl (11.8-15.2); Lymphocytes # (Auto) 1.8 K/mm3 (1.2-5.4); Lymphocytes % (Auto) 21.1 % (13.4-35.0); Mean Corpuscular HGB Conc 32 % (32-34); Mean Corpuscular Volume 85 fl (84-94); Monocytes # (Auto) 0.6 K/mm3 (0.0-0.8); Monocytes % (Auto) 7.2 % (0.0-7.3); Platelet Count 342 K/mm3 (140-440); Red Cell Distribution Width 16.2 % (13.2-15.2)
[2021-12-22 05:05] LABS: BUN/Creatinine Ratio 17; Blood Urea Nitrogen 17 mg/dL (9-20); Calcium 9.1 mg/dL (8.4-10.2); Hemolysis Index 16
[2021-12-22 07:41] LABS: BUN/Creatinine Ratio 18; Blood Urea Nitrogen 16 mg/dL (9-20); Calcium 9.1 mg/dL (8.4-10.2); Hemolysis Index 144
[2021-12-22] MEDS: D5W/0.45% NACL/KCL 20 MEQ 20 MEQ/1,000 ML BAG IV SCH (08:11)
[2021-12-22] MEDS: INSULIN NPH, HUMAN 100 UNIT/1 ML SUB-Q SCH ×2 (11:28→17:28)
--- NOTE | 2021-12-22 11:40 | Event Note ---
Date: 12/22/21 56 y/o male admitted with DKA, now with new diagnosis of diabetes, anion gap is closed. Start long acting insulin Feed patient Diabetic education If able to tolerate food, transfer to floor WIll sign off once out of unit.
[2021-12-22] MEDS ORDERED: PHENOL 1.4% 177 ML BOTTLE MM PRN (14:31)
[2021-12-22] MEDS: INSULIN LISPRO 100 UNIT/ML SUB-Q SCH (16:49)
[2021-12-22] MEDS: INSULIN REGULAR, HUMAN 100 UNITS/1 ML SUB-Q SCH ×2 (16:51→22:14)
--- NOTE | 2021-12-22 17:37 | Progress Note ---
Assessment and Plan Assessment and plan: A/P: This is a this is a 56-year-old male with diabetes mellitus admitted with DKA Neuro: NAD -Avoid delirium -Reorientation as needed -Maintain sleep-wake cycle -As needed analgesia Cardiac: NAD -Blood pressure monitoring per protocol Respiratory: NAD, c/o SOB on exertion -CXR with no acute findings -Currently on room air -Pulmonary hygiene -SPO2 monitoring GI: Protein calorie malnutrition, obesity -PPI -CC diet -BR : colace -Encourage dietary and lifestyle modifications : Hyperchloremic metabolic acidosis, acute kidney injury secondary to vasomotor nephropathy (resolved) -Strict intake and output -Renally dose medications -Avoid nephrotoxic medications -Daily weights -FeNa 0.25 indicating prerenal state ID: NAD -Monitor WBC and temperature curve Endo: S/p DKA, h/o DM -Hemoglobin A1c 13 -S/p insulin drip -Accu-Cheks AC at bedtime -SSI -Long-acting insulin -S/p 4 L IV fluid -Repeat 2 L IVF -Avoid hypoglycemia -CC diet -software educator Heme: NAD -Trend CBC -Transfuse hemoglobin less than 7 -Monitor for signs of bleeding -Heparin subcu -SCDs to BLE while in bed MS: Weakness -Per patient patient had a fall episode last week, Per at bedside he sat down from standing position/slumped over -No weakness noted on exam -May be secondary to volume deficit from DKA -May need PT/OT consult The high probability of a clinically significant, sudden or life threatening deterioration of the [endo] system(s) required my full and direct attention, intervention and personal management. The aggregate critical care time was [60] minutes. This time is in addition to time spent performing reported procedures but includes the following: [x] Data Review and interpretation [x] Patient assessment and monitoring of vital signs [x] Documentation [x] Medication orders and management Disposition Plan: transfer to floor Total Time Spent with Patient (Minutes): 60 History Interval history: This is a 56-year-old male with DM (per patient diagnosed last week and was prescribed metformin 500 twice daily with stated compliance) who presents the emergency department on 12/21 with complaints of weakness, dry lips, polyuria, polydipsia, SOB while walking and periumbilical abdominal pain for the past week. Patient denies any chest pain, weight loss, weight gain, cough, hematuria, hematochezia, hematemesis, night sweats but does endorse weakness and shortness of breath on exertion. Patient states that he has been vaccinated x2 and received a booster Pharm[employer] vaccine against COVID-19. Work-up in the emergency department lab work was consistent with DKA. Patient admitted to the hospitalist service with consult to [facility] with diagnosis of DKA and initiated the DKA protocol. 12/22: transitioned to SSI, long acting insulin, tolerating PO diet. Transferred to floor. Hospitalist Physical - Constitutional Vitals: Temp Pulse Resp BP Pulse Ox 98.7 F 78 19 135/75 98 12/22/21 11:45 12/22/21 14:00 12/22/21 14:00 12/22/21 14:00 12/22/21 15:27 General appearance: Present: no acute distress, obese - EENT Eyes: Present: PERRL, EOM intact ENT: hearing intact, poor dentition - Neck Neck: Present: normal ROM - Respiratory Respiratory effort: normal Respiratory: bilateral: CTA - Cardiovascular Rhythm: regular Heart Sounds: Present: S1 & S2. Absent: systolic murmur, diastolic murmur - Extremities Extremities: no ischemia, pulses intact, pulses symmetrical, No edema, normal temperature, normal color, Full ROM Peripheral Pulses: within normal limits - Abdominal General gastrointestinal: soft, non-tender, non-distended, normal bowel sounds - Integumentary Integumentary: Present: warm, dry - Psychiatric Psychiatric: cooperative - Neurologic Neurologic: CNII-XII intact, no focal deficits, moves all extremities - Allied Health Allied health notes reviewed: nursing, RT, social work HEART Score - HEART Score EKG: Normal Age: 45-65 Risk factors: 1-2 risk factors Troponin: < normal limit Results - Labs CBC & Chem 7: 12/22/21 04:16 12/22/21 Unknown Labs: Laboratory Last Values WBC 8.4 K/mm3 (4.5-11.0) 12/22/21 04:16 RBC 5.20 M/mm3 (3.65-5.03) H 12/22/21 04:16 Hgb 14.2 gm/dl (11.8-15.2) 12/22/21 04:16 Hct 44.2 % (35.5-45.6) 12/22/21 04:16 MCV 85 fl (84-94) 12/22/21 04:16 MCH 27 pg (28-32) L 12/22/21 04:16 MCHC 32 % (32-34) 12/22/21 04:16 RDW 16.2 % (13.2-15.2) H 12/22/21 04:16 Plt Count 342 K/mm3 (140-440) 12/22/21 04:16 Lymph % (Auto) 21.1 % (13.4-35.0) 12/22/21 04:16 [place] % (Auto) 7.2 % (0.0-7.3) 12/22/21 04:16 Eos % (Auto) 1.8 % (0.0-4.3) 12/22/21 04:16 Baso % (Auto) 0.5 % (0.0-1.8) 12/22/21 04:16 Lymph # (Auto) 1.8 K/mm3 (1.2-5.4) 12/22/21 04:16 [place] # (Auto) 0.6 K/mm3 (0.0-0.8) 12/22/21 04:16 Eos # (Auto) 0.2 K/mm3 (0.0-0.4) 12/22/21 04:16 Baso # (Auto) 0.0 K/mm3 (0.0-0.1) 12/22/21 04:16 Seg Neutrophils % 69.4 % (40.0-70.0) 12/22/21 04:16 Seg Neutrophils # 5.8 K/mm3 (1.8-7.7) 12/22/21 04:16 VBG pH 7.318 (7.320-7.420) L 12/21/21 04:30 Sodium 141 mmol/L (137-145) 12/22/21 Unknown Potassium 4.5 mmol/L (3.6-5.0) D 12/22/21 Unknown Chloride 110.6 mmol/L (98-107) H 12/22/21 Unknown Carbon Dioxide 19 mmol/L (22-30) L 12/22/21 Unknown Anion Gap 16 mmol/L 12/22/21 Unknown BUN 16 mg/dL (9-20) 12/22/21 Unknown Creatinine 0.9 mg/dL (0.8-1.3) 12/22/21 Unknown Estimated GFR > 60 ml/min 12/22/21 Unknown BUN/Creatinine Ratio 18 % 12/22/21 Unknown Glucose 113 mg/dL (75-100) H 12/22/21 Unknown POC Glucose 257 mg/dL (70-105) H 12/22/21 15:48 Hemoglobin A1c 13.0 % (4-6) H 12/21/21 04:30 Calcium 9.1 mg/dL (8.4-10.2) 12/22/21 Unknown Phosphorus 5.40 mg/dL (2.5-4.5) H 12/21/21 04:30 Magnesium 2.20 mg/dL (1.7-2.3) 12/21/21 04:30 Total Bilirubin 0.50 mg/dL (0.1-1.2) 12/21/21 04:30 AST 16 units/L (5-40) 12/21/21 04:30 ALT 24 units/L (7-56) 12/21/21 04:30 Alkaline Phosphatase 111 units/L (35-129) 12/21/21 04:30 Total Protein 9.4 g/dL (6.3-8.2) H 12/21/21 04:30 Albumin 4.2 g/dL (3.9-5) 12/21/21 04:30 Albumin/Globulin Ratio 0.8 % 12/21/21 04:30 Urine Color Yellow (Yellow) 12/21/21 06:04 Urine Turbidity Clear (Clear) 12/21/21 06:04 Urine pH 5.0 (5.0-7.0) 12/21/21 06:04 Ur Specific [place] 1.025 (1.003-1.030) 12/21/21 06:04 Urine Protein <15 mg/dl mg/dL (Negative) 12/21/21 06:04 Urine Glucose (UA) >=500 mg/dL (Negative) 12/21/21 06:04 Urine Ketones 20 mg/dL (Negative) 12/21/21 06:04 Urine Blood Neg (Negative) 12/21/21 06:04 Urine Nitrite Neg (Negative) 12/21/21 06:04 Urine Bilirubin Neg (Negative) 12/21/21 06:04 Urine Urobilinogen < 2.0 mg/dL (<2.0) 12/21/21 06:04 Ur Leukocyte Esterase Mod (Negative) 12/21/21 06:04 Urine WBC (Auto) 39.0 /HPF (0.0-6.0) H 12/21/21 06:04 Urine RBC (Auto) 9.0 /HPF (0.0-6.0) 12/21/21 06:04 U Epithel Cells (Auto) 2.0 /HPF (0-13.0) 12/21/21 06:04 Urine Mucus Few /HPF 12/21/21 06:04 Urine Osmolality 909 Mosm/kg 12/21/21 16:45 Urine Creatinine 258.3 mg/dL (0.1-20.0) H 12/21/21 16:45 Urine Sodium 57 mmol/L 12/21/21 16:45 Urine Urea Nitrogen 1417 12/21/21 16:45 Microbiology: Microbiology 12/21/21 06:04 Urine,Clean Catch Urine Culture - Preliminary NO GROWTH AFTER 24 HOURS Active Medications - Current Medications Current Medications: Generic Name Dose Route Start Last Admin Trade Name Freq PRN Reason Stop Dose Admin Acetaminophen 650 mg 12/21/21 08:00 Acetaminophen 325 Mg Tab PO Q6H PRN Pain MILD(1-3)/Fever >100.5/CARMONA Dextrose 0 ml 12/21/21 08:00 Dextrose 50% In Water (25gm) 50 Ml Syringe IV Q30MIN PRN Hypoglycemia Protocol Enoxaparin Sodium 40 mg 12/22/21 22:00 Enoxaparin 40 Mg/0.4 Ml Inj SUB-Q QDAY@[facility] Protocol Insulin Human Lispro 5 unit 12/22/21 16:30 12/22/21 16:49 Insulin Lispro 100 Unit/Ml SUB-Q 5 unit AC DM Administration Insulin Human NPH 25 unit 12/22/21 11:00 12/22/21 17:28 Insulin Nph, Human 100 Unit/1 Ml SUB-Q 25 unit BIDDIAB DM Administration Insulin Human Regular 0 units 12/22/21 16:30 12/22/21 16:51 Insulin Regular, Human 100 Units/1 Ml SUB-Q 4 units ACHS DM Administration Protocol Morphine Sulfate 2 mg 12/21/21 08:00 Morphine 2 Mg/1 Ml Inj IV Q4H PRN Pain, Moderate (4-6) Morphine Sulfate 4 mg 12/21/21 08:00 Morphine 4 Mg/1 Ml Inj IV Q4H PRN Pain , Severe (7-10) Phenol 1 spray 12/22/21 14:31 12/22/21 17:28 Phenol 1.4% 177 Ml Bottle MM 1 spray PRN PRN Administration Sore Throat Sodium Chloride 10 ml 12/21/21 10:00 12/22/21 10:53 Sodium Chloride 0.9% 10 Ml Flush Syringe IV 10 ml BID DM Administration Sodium Chloride 10 ml 12/21/21 08:00 Sodium Chloride 0.9% 10 Ml Flush Syringe IV PRN PRN LINE FLUSH Nutrition/Malnutrition Assess - Dietary Evaluation Nutrition/Malnutrition Findings: Nutrition Notes Start: 12/21/21 19:25 Freq: Status: Active Protocol: Document 12/22/21 11:19 DORA (Rec: 12/22/21 11:45 DORA [email or web address]) Nutrition Notes Need for Assessment 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 Current Diet Consistent Carbohydrates Diet (since L 12/22). Labs/Tests 12/22: Cl 110.6, CO2 19, Glu 113, HbA1c 13. Pertinent Medications 12/22: KCl 20 mEq, others nutritionally unremarkable. 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 Discrepancy of 13.81 Kg body weight gain in 1 day reported. Weight Status Obese Subjective/Other Information RD consult for New Onset Diabetes. No reports available on Pt's PO intake of meals at the time , will assess at F/U. Pt states being diagnosed with T2DM a week ago, and being compliant with prescribed Metformin 500 mg/day, according to History & Physical notes. Pt on Room Air, O2 saturation @ 98%, according to Physical Assessment History notes. Pt continues in critical condition, not a candidate for Nutrition Education at the time, will assess feasibility on F/U. Percent of energy/protein needs met: Prescribed Consistent Carbohydrates Diet provides for energy/protein needs (2, 061 Kcal/91 g) during LOS. Burn Absent Trauma Absent GI Symptoms None Food Allergy No Skin Integrity/Comment Assessment WNL. Minimum of two criteria No #1 Nutrition Diagnosis Food and nutrition-related knowledge deficit Etiology New Onset Diabetes. As Evidenced by Signs and Symptoms Pt presented with DKA. Is patient on ventilator? No Is Patient Ambulatory and/or Out of Bed Yes REE-([facility]OOB) [ 2597.569 [id number]] Kcal/Kg value to use for calculation 18 Approximate Energy Requirements Using 2045 kcal/Kg Calculation Used for Recommendations Kcal/kg Additional Notes Protein: 0.8-1.2 g/Kg AdjBW; 77-115 g/day. Fluids: 1 ml/Kcal, or as per MD. Nutrition Intervention Change Diet Order: Continue Consistent Carbohydrates Diet. Education Handouts Provided AND: Diabetes Label Reading Tips, Using Nutrition Labels: Carbohydrate, and Metabolic Syndrome Menu. Goal #1 Adjust the dietary intervention to better serve Pt's needs and clinical conditions during LOS. Goal #2 Maintain body weight within +/ -3% of admission body weight during LOS. Goal #3 During LOS, provide Pt with nutrition education to foster behavioral changes towards a healthy lifestyle. Follow-Up By: 12/29/21 Additional Comments Nutrition education will be provided on F/U, if feasible. Continue monitoring food tolerance, %PO intake of meals , and BM.
[2021-12-22] MEDS ORDERED: ENOXAPARIN 40 MG/0.4 ML INJ SUB-Q SCH (22:00)
[2021-12-22] MEDS: DOCUSATE SODIUM 100 MG CAP PO SCH (22:14)
[2021-12-23 06:13] LABS: Hematocrit 40.5 % (35.5-45.6); Hemoglobin 13.3 gm/dl (11.8-15.2); Mean Corpuscular HGB Conc 33 % (32-34); Mean Corpuscular Volume 84 fl (84-94); Platelet Count 352 K/mm3 (140-440); Red Blood Count 4.83 M/mm3 (3.65-5.03); Red Cell Distribution Width 15.9 % (13.2-15.2)
[2021-12-23 06:31] LABS: BUN/Creatinine Ratio 14; Blood Urea Nitrogen 13 mg/dL (9-20); Calcium 8.8 mg/dL (8.4-10.2); Hemolysis Index 6
--- NOTE | 2021-12-23 08:15 | Discharge Summary ---
Providers - Providers Date of Admission: 12/21/21 07:42 Date of discharge: 12/23/21 Attending physician: GUSTABO SHER MD 12/21/21 07:42 Consult to Dietitian/Nutrition [CONS] Routine Physician Instructions: Reason For Exam: DKA Reason for Consult: Nutrition Recommendations Reason for Consult: Diet education Primary care physician: STOCK MIXER Hospitalization Reason for admission: abdominal pain Condition: Fair Hospital course: History Interval history: This is a 56-year-old male with DM (per patient diagnosed last week and was prescribed metformin 500 twice daily with stated compliance) who presents the emergency department on 12/21 with complaints of weakness, dry lips, polyuria, polydipsia, SOB while walking and periumbilical abdominal pain for the past week. Patient denies any chest pain, weight loss, weight gain, cough, hematuria, hematochezia, hematemesis, night sweats but does endorse weakness and shortness of breath on exertion. Patient states that he has been vaccinated x2 and received a booster [employer] vaccine against COVID-19. Work-up in the emergency department lab work was consistent with DKA. Patient admitted to the hospitalist service with consult to [facility] with diagnosis of DKA and initiated the DKA protocol. 12/22: transitioned to SSI, long acting insulin, tolerating PO diet. Transferred to floor. 12/23: Gap closed. Plan to discharge home today. Patient will be discharged home with rx for nph 70/30 30 units bid and diabetic supplies. Given instructions to follow up with OP primary care physician in 3-5 days. Neuro: NAD -Avoid delirium -Reorientation as needed -Maintain sleep-wake cycle -As needed analgesia Cardiac: NAD -Blood pressure monitoring per protocol Respiratory: NAD, c/o SOB on exertion -CXR with no acute findings -Currently on room air -Pulmonary hygiene -SPO2 monitoring GI: Protein calorie malnutrition, obesity -PPI -CC diet -BR : colace -Encourage dietary and lifestyle modifications : Hyperchloremic metabolic acidosis, acute kidney injury secondary to vasomotor nephropathy (resolved) -Strict intake and output -Renally dose medications -Avoid nephrotoxic medications -Daily weights -FeNa 0.25 indicating prerenal state ID: NAD -Monitor WBC and temperature curve Endo: S/p DKA, h/o DM -Hemoglobin A1c 13 -S/p insulin drip -Accu-Cheks AC at bedtime -SSI -Long-acting insulin -S/p 4 L IV fluid -Repeat 2 L IVF -Avoid hypoglycemia -CC diet -religious educator Heme: NAD -Trend CBC -Transfuse hemoglobin less than 7 -Monitor for signs of bleeding -Heparin subcu -SCDs to BLE while in bed MS: Weakness -Per patient patient had a fall episode last week, Per at bedside he sat down from standing position/slumped over -No weakness noted on exam -May be secondary to volume deficit from DKA -May need PT/OT consult Disposition: HOME / SELF CARE / HOMELESS Final Discharge Diagnosis (Prints w/discharge instructions): diabetic ketoacidosis Time spent for discharge: 35 Core Measure Documentation - Palliative Care Palliative Care/ Comfort Measures: Not Applicable - Core Measures Any of the following diagnoses?: none Exam - Physical Exam Narrative exam: General appearance: Present: no acute distress, obese - EENT Eyes: Present: PERRL, EOM intact ENT: hearing intact, poor dentition - Neck Neck: Present: normal ROM - Respiratory Respiratory effort: normal Respiratory: bilateral: CTA - Cardiovascular Rhythm: regular Heart Sounds: Present: S1 & S2. Absent: systolic murmur, diastolic murmur - Extremities Extremities: no ischemia, pulses intact, pulses symmetrical, No edema, normal temperature, normal color, Full ROM Peripheral Pulses: within normal limits - Abdominal General gastrointestinal: soft, non-tender, non-distended, normal bowel sounds - Integumentary Integumentary: Present: warm, dry - Psychiatric Psychiatric: cooperative - Neurologic Neurologic: CNII-XII intact, no focal deficits, moves all extremities - Allied Health Allied health notes reviewed: nursing, RT, social work - Constitutional Vitals: Temp Pulse Resp BP Pulse Ox 97.4 F L 77 22 113/72 96 12/23/21 04:50 12/23/21 04:50 12/23/21 04:50 12/23/21 04:50 12/23/21 04:50 Plan Follow up with: CARMINE GREGORY MD [Primary Care Provider] - 3-5 Days CARO RIOS MD [Staff Physician] - 7 Days Prescriptions: Insulin NPH/Regular [NovoLIN 70/30] 30 unit SQ BID 30 Days #3 ml Other Discharge Orders: Glucometer (Amb) Location: None Selected Glucometer supplies[Amb] Location: None Selected
[2021-12-23] MEDS: DOCUSATE SODIUM 100 MG CAP PO SCH (09:12)
[2021-12-23] MEDS: INSULIN NPH, HUMAN 100 UNIT/1 ML SUB-Q SCH (09:13)
[2021-12-23] MEDS: INSULIN REGULAR, HUMAN 100 UNITS/1 ML SUB-Q SCH ×2 (09:14→12:18)
[2021-12-23] MEDS: INSULIN LISPRO 100 UNIT/ML SUB-Q SCH ×2 (09:14→12:18)
[2021-12-23 12:09] VITALS: BP 109/64
== END 2021-12-23 14:06 | disposition home or self-care (01) | DRG 637 ==
LOC: ED 01:58 → CC1 07:42 → 3A 12-22 15:03
PROVIDERS: ADMIT Internal Medicine; ATTEND Internal Medicine
DX: E11.10 Type 2 diabetes mellitus with ketoacidosis without coma (principal); N17.0 Acute kidney failure with tubular necrosis; E46 Unspecified protein-calorie malnutrition; N17.8 Other acute kidney failure; E87.1 Hypo-osmolality and hyponatremia; Z68.34 Body mass index [BMI] 34.0-34.9, adult; K21.9 Gastro-esophageal reflux disease without esophagitis; Z83.3 Family history of diabetes mellitus; E87.8 Other disorders of electrolyte and fluid balance, not elsewhere classified; E87.5 Hyperkalemia; E83.39 Other disorders of phosphorus metabolism; E66.9 Obesity, unspecified
CPT/HCPCS: 36415; 71045; 80048; 80053; 81001; 82570; 82805; 82962; 83036; 83735; 83935; 84100; 84132; 84300; 84520; 85025; 85027; 87086; G0378; J2354; J3480; Q9967; J1644; J1650; J1815; J7030